=== PATIENT | female | born 1955 | race American Indian/Alaskan Native ===

== ENCOUNTER 2017-04-14 08:38 | Outpatient (CLI) | payer BC ==
--- NOTE | 2017-04-14 09:16 | Mammography Report ---
Bilateral mammogram: Compared to 03/17/16. CAD study utilized. Findings: Predominantly fatty breast. No mass or microcalcification. Benign axillary nodes. Impression: Benign findings. Annual followup recommended. BI-RADS CATEGORY: 2 = Benign ACR BI-RADS MAMMOGRAPHIC CODES: 0 = Needs additional imaging evaluation; 1 = Negative; 2 = Benign; 3 = Probably benign; 4 = Suspicious; 5 = Malignant; 6 = Known biopsy-proven malignancy COMMENT: 1. Dense breast tissue, i.e., adenosis, fibrocystic changes, etc., may obscure an underlying neoplasm. 2. Approximately 10% of cancers are not detected with mammography. 3. A negative mammography report should not delay biopsy if a clinically suspicious mass is present. COMMENT: Patient follow-up letters are generated in [employer].
== END 2017-04-14 08:39 | disposition home or self-care (01) ==
LOC: MAMMO 08:38
PROVIDERS: ATTEND Family Medicine
DX: Z12.31 Encounter for screening mammogram for malignant neoplasm of breast (principal)
CPT/HCPCS: 77067; G0202

== ENCOUNTER 2017-09-02 15:48 | Emergency (ER) | payer OTHER, BC ==
[2017-09-02 17:02] LABS: Anion Gap 22 mmol/L; BUN/Creatinine Ratio 18; Blood Urea Nitrogen 11 mg/dL (7-17); Calcium 9.5 mg/dL (8.4-10.2); Carbon Dioxide 22 mmol/L (22-30); Chloride 102.7 mmol/L (98-107); Glucose 157 mg/dL (65-100); Potassium 4.2 mmol/L (3.6-5.0); Sodium 142 mmol/L (137-145)
[2017-09-02 17:03] LABS: Hematocrit 43.8 % (30.3-42.9); Hemoglobin 14.2 gm/dl (10.1-14.3); Mean Corpuscular HGB Conc 33 % (30-34); Mean Corpuscular Hemoglobin 30 pg (28-32); Mean Corpuscular Volume 93 fl (79-97); Platelet Count 181 K/mm3 (140-440); Red Blood Count 4.71 M/mm3 (3.65-5.03); Red Cell Distribution Width 13.7 % (13.2-15.2); White Blood Count 7.5 K/mm3 (4.5-11.0)
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
[2017-09-02] MEDS ORDERED: MORPHINE IV ONE (20:31)
[2017-09-02] MEDS ORDERED: APRESOLINE IV ONE (20:31)
[2017-09-02] MEDS ORDERED: ZOFRAN ONE (21:54)
[2017-09-02] MEDS ORDERED: ZOFRAN IV ONE (21:56)
[2017-09-02 22:07] VITALS: BP 124/73
--- NOTE | 2017-09-02 22:33 | XRay Report ---
FINAL REPORT PROCEDURE: XR SHOULDER 2+V RT TECHNIQUE: Three views of the right shoulder obtained HISTORY: shoulder pain COMPARISON: No prior studies are available for comparison. FINDINGS: Mild osteoarthritic changes are seen in the right shoulder. No fracture or dislocation is seen. IMPRESSION: Mild osteoarthritic changes are seen in the right shoulder.
--- NOTE | 2017-09-02 22:41 | XRay Report ---
FINAL REPORT PROCEDURE: XR SPINE CERVICAL 2-3V TECHNIQUE: Four views of the cervical spine are obtained HISTORY: neck pain COMPARISON: No prior studies are available for comparison. FINDINGS: Cervical lordosis is preserved. No subluxation or prevertebral soft tissue swelling is seen. Likely mild uncovertebral osteophytes are seen at C5-6. Mild facet arthropathy is suggested at C7-T1. No fracture is seen. IMPRESSION: Mild arthritic changes are seen in the lower cervical spine.
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
== END 2017-09-02 23:49 | disposition home or self-care (01) ==
LOC: ED 15:48
DX: R07.89 Other chest pain (principal); I10 Essential (primary) hypertension; M25.511 Pain in right shoulder; V49.49XA Driver injured in collision with other motor vehicles in traffic accident, initial encounter; Y93.9 Activity, unspecified; Y92.9 Unspecified place or not applicable; Y99.9 Unspecified external cause status
CPT/HCPCS: 36415; 71020; 72040; 73030; 80048; 84484; 85025; 93005; 93010; 96374; 96375; 99285; J0360; J2270; J2405

== ENCOUNTER 2017-10-08 11:36 | Emergency (ER) | payer BC, OTHER ==
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
[2017-10-08 15:36] VITALS: BP 172/88
--- NOTE | 2017-10-11 14:46 | Vascular Lab Report ---
Left Lower Extremity Venous Duplex Study: Reason for Exam: Pain of the left lower extremity. Comments on the Right: A limited duplex study was done of the proximal veins of the right lower extremity. All veins visualized are freely compressible without evidence of internal echogenicity. Flow is spontaneous and phasic throughout. No evidence of acute or chronic thrombus is seen in any of the vessels visualized. Comments on the Left: All veins visualized are freely compressible without evidence of internal echogenicity. Flow is spontaneous and phasic throughout. No evidence of acute or chronic thrombus is seen in any of the vessels visualized. Impression: No evidence of acute or chronic deep venous thrombosis in the left lower extremity.
== END 2017-10-08 15:37 | disposition home or self-care (01) ==
LOC: ED 11:36
DX: M79.662 Pain in left lower leg (principal); I10 Essential (primary) hypertension; E11.9 Type 2 diabetes mellitus without complications; Z90.710 Acquired absence of both cervix and uterus; Z91.040 Latex allergy status

== ENCOUNTER 2018-04-15 08:10 | Outpatient (CLI) | payer BC ==
--- NOTE | 2018-04-21 12:51 | Mammography Report ---
BILATERAL DIGITAL SCREENING MAMMOGRAM with CAD: 04/15/18 08:10:00 CLINICAL: Routine screening. COMPARISON:04/14/17 FINDINGS: The breasts are almost entirely fatty. No mass, architectural distortion or suspicious calcifications. IMPRESSION: No mammographic evidence of malignancy. BI-RADS CATEGORY: 1 - - Negative RECOMMENDATION: Routine mammographic screening in one year. COMMENT: Patient follow-up letters are generated by our [employer] application.
== END 2018-04-15 08:11 | disposition home or self-care (01) ==
LOC: MAMMO 08:10
PROVIDERS: ATTEND Family Medicine
DX: Z12.31 Encounter for screening mammogram for malignant neoplasm of breast (principal)
CPT/HCPCS: 77067

== ENCOUNTER 2018-12-24 08:02 | Outpatient (CLI) | payer BC ==
--- NOTE | 2018-12-24 09:01 | Mammography Report ---
BILATERAL MAMMOGRAM: FINDINGS: The breasts are almost entirely fat (<25% glandular). No mass, distortion, suspicious calcification, or skin change is seen. No significant change when compared to exams dating back to March 2017. CAD was utilized. IMPRESSION: Negative mammogram. There is no mammographic evidence of malignancy. RECOMMENDATION: Follow-up per ACS guidelines. BI-RADS CATEGORY: 1 = Negative ACR BI-RADS MAMMOGRAPHIC CODES: 0 = Needs additional imaging evaluation; 1 = Negative; 2 = Benign; 3 = Probably benign; 4 = Suspicious; 5 = Malignant; 6 = Known biopsy-proven malignancy COMMENT: 1. Dense breast tissue, i.e., adenosis, fibrocystic changes, etc., may obscure an underlying neoplasm. 2. Approximately 10% of cancers are not detected with mammography. 3. A negative mammography report should not delay biopsy if a clinically suspicious mass is present. COMMENT: Patient follow-up letters are generated in [employer].
== END 2018-12-24 08:03 | disposition home or self-care (01) ==
LOC: MAMMO 08:02
PROVIDERS: ATTEND Family Medicine
DX: Z12.31 Encounter for screening mammogram for malignant neoplasm of breast (principal); I10 Essential (primary) hypertension; Z90.710 Acquired absence of both cervix and uterus
CPT/HCPCS: 77067

== ENCOUNTER 2021-02-01 09:39 | Outpatient (CLI) | payer MEDICARE ==
--- NOTE | 2021-02-01 12:12 | Mammography Report ---
DIGITAL SCREENING MAMMOGRAM WITH CAD, 02/01/2021 CLINICAL INFORMATION / INDICATION: Routine screening mammography. TECHNIQUE: Digital bilateral 2D mammography was obtained in the craniocaudal and mediolateral obliqu e projections. This examination was interpreted with the benefit of Computer-Aided Detection analysis . COMPARISON: 12/24/2018 FINDINGS: Breast Density: The breasts are almost entirely fatty. No dominant mass, suspicious calcifications, or architectural distortion in either breast. No interval change. IMPRESSION: No mammographic evidence of malignancy. Follow up recommendation: Routine yearly BI-RADS Category 1: Negative. A "normal" or negative report should not discourage follow up or biopsy of a clinically significant f inding. A written summary of these findings will be mailed to the patient. The patient will be entered into a mammography reporting system which will generate a reminder letter for the patient's next appointmen t at the appropriate interval. The [employer] recommends yearly mammograms starting at age 40 and continuing as l guicho as a woman is in good health. Breast MRI is recommended for women with an approximate 20-25% or greater lifetime risk of breast cancer, including women with a strong family history of breast or ova poonam cancer or who have been treated for Hodgkin's disease. Signer Name: Kelsea Levine MD Signed: 02/01/2021 12:08 PM Workstation Name: [id number]
== END 2021-02-01 09:40 | disposition home or self-care (01) ==
LOC: MAMMO 09:39
PROVIDERS: ATTEND Family Medicine
DX: Z12.31 Encounter for screening mammogram for malignant neoplasm of breast (principal)
CPT/HCPCS: 77067